=== PATIENT | male | born 1990 | race Two or more races ===

== ENCOUNTER 2016-10-04 07:26 | Emergency (ER) | payer OTHER ==
[~2016-10-04] VITALS: Ht 177.8 cm; Wt 99.0 kg
[~2016-10-04 07:26] MED LIST: FIORIC PO
[2016-10-04 07:31] VITALS: BP 136/86; PULSE 84; RESP 18; TEMP 98.8; O2SAT 97
[2016-10-04] MEDS ORDERED: BACT800T5 PO (07:55)
--- NOTE | 2016-10-04 08:00 | PD ---
HPI Chief Complaint: Skin Problem Time Seen by Provider: 07:46 Travel History International Travel<30 days: No Contact w/Intl Traveler<30days: No Traveled to known affect area: No History of Present Illness HPI This patient complains of some swelling and redness to his right second finger. He noticed it last night. Duration is one day. No injury. No fever no drainage. PFSH Past Medical History Diminished Hearing: No GERD: Yes Immunizations Current: No Migraines: Yes Tetanus Vaccination: Unknown Influenza Vaccination: No Past Surgical History Cholecystectomy: Yes Tonsillectomy: Yes Other Surgery: Yes (SCROTAL HERNIA) Social History Alcohol Use: No Tobacco Use: No (vapor cigs) Substance Use: No Allergies-Medications (Allergen,Severity, Reaction): Coded Allergies: No Known Allergies (Unverified , 10/04/16) Reported Meds & Prescriptions Reported Meds & Active Scripts Active Bactrim DS (Sulfamethoxazole-Trimethoprim) 800-160 Mg Tab 1 Tab PO BID Review of Systems General / Constitutional: No: Fever HENT: No: Headaches Cardiovascular: No: Chest Pain or Discomfort Physical Exam Narrative SKIN: Inspection shows no rash or ulcers. Palpation shows no induration or nodules. Psych: Normal mood and affect. Normal insight and judgment. Right hand: there is some mild swelling of the right second finger distal to the PIP joint. There is no fluctuance or drainage. He can easily flex and extend all the joints of that finger. There is minimal redness. Data Data Last Documented VS Vital Signs Date Time Temp Pulse Resp B/P Pulse Ox O2 Delivery O2 Flow Rate FiO2 10/04/16 07:31 98.8 84 18 136/86 97 MDM Medical Decision Making Medical Screen Exam Complete: Yes Emergency Medical Condition: Yes Medical Record Reviewed: Yes Differential Diagnosis Cellulitis, abscess, tendinitis Narrative Course I have reviewed the patient's electronic medical record. I think he has a mild infection of the distal right second finger. I'm starting Bactrim DS. He will return if he has no improvement in 48 hours No indication for hand surgeon or studies at this time Diagnosis Primary Impression: Finger infection Additional Instructions: The patient was advised to follow up with their physician and return if they worsen. Med/Other Pt SpecificInfo: Prescription(s) given Scripts Sulfamethoxazole-Trimethoprim (Bactrim DS)800-160 Mg Tab1 Tab PO BID #14 TAB Ref 0 Prov:Wei Keyes MD 10/04/16 Disposition: 01 DISCHARGE HOME Condition: Stable Wei Keyes MD Oct 04, 2016 08:00
== END 2016-10-04 08:10 | disposition home or self-care (01) ==
LOC: PHED 07:26
DX: L08.9 Local infection of the skin and subcutaneous tissue, unspecified (principal)
CPT/HCPCS: 99282

== ENCOUNTER 2017-03-09 07:35 | Emergency (ER) | payer SELFPAY ==
[~2017-03-09] VITALS: Ht 177.8 cm; Wt 98.0 kg
[~2017-03-09 07:35] MED LIST changes: +BACT800T5 PO; -FIORIC PO
[2017-03-09 07:38] VITALS: BP 144/97; PULSE 72; RESP 16; TEMP 97.9; O2SAT 98
[2017-03-09] MEDS ORDERED: SODIUM CHLOR 0.9% 1000 ML INJ 1,000 ML IV SCH (07:51)
--- NOTE | 2017-03-09 07:53 | PD ---
HPI Chief Complaint: Abdominal Pain Time Seen by Provider: 07:51 Travel History International Travel<30 days: No Contact w/Intl Traveler<30days: No Traveled to known affect area: No History of Present Illness HPI 26-year-old male with history of cholecystectomy in the past, presents to the ER today with 2 days history of nausea, vomiting, diarrhea, and abdominal cramping pains. Pains are intermittent in nature and can get to a 9 out of 10. He denies any fevers, cough, cold symptoms, or any other symptoms. He does not know any sick contacts, bad food exposure, and denies recent travel. Modifying Factors: None Associated Signs & Symptoms: Nausea, vomiting, diarrhea Risk Factors: None PFSH Past Medical History Diminished Hearing: No GERD: Yes Immunizations Current: No Migraines: Yes Past Surgical History Cholecystectomy: Yes Tonsillectomy: Yes Other Surgery: Yes (SCROTAL HERNIA) Social History Alcohol Use: No Tobacco Use: No (vapor cigs) Substance Use: No Allergies-Medications (Allergen,Severity, Reaction): Coded Allergies: No Known Allergies (Unverified , 03/09/17) Reported Meds & Prescriptions Reported Meds & Active Scripts Active No Active Prescriptions or Reported Medications Review of Systems Except as stated in HPI: all other systems reviewed are Neg Physical Exam Narrative GENERAL: Well-developed young male patient currently in mild distress. Awake and oriented 3. SKIN: Focused skin assessment warm/dry. HEAD: Atraumatic. Normocephalic. EYES: Pupils equal and round. No scleral icterus. No injection or drainage. ENT: No nasal bleeding or discharge. Mucous membranes pink and moist. NECK: Trachea midline. No JVD. CARDIOVASCULAR: Regular rate and rhythm. No murmur appreciated. RESPIRATORY: No accessory muscle use. Clear to auscultation. Breath sounds equal bilaterally. GASTROINTESTINAL: Abdomen soft, diffuse lower abdominal tenderness without guarding or rebound, nondistended. Hepatic and splenic margins not palpable. MUSCULOSKELETAL: No obvious deformities. No clubbing. No cyanosis. No edema. NEUROLOGICAL: Awake and alert. No obvious cranial nerve deficits. Motor grossly within normal limits. Normal speech. PSYCHIATRIC: Appropriate mood and affect; insight and judgment normal. Data Data Last Documented VS Vital Signs Date Time Temp Pulse Resp B/P Pulse Ox O2 Delivery O2 Flow Rate FiO2 03/09/17 11:01 69 16 149/85 99 Room Air 03/09/17 07:38 97.9 Orders Complete Blood Count With Diff (03/09/17 07:51) Comprehensive Metabolic Panel (03/09/17 07:51) Lipase (03/09/17 07:51) Iv Access Insert/Monitor (03/09/17 07:51) Ecg Monitoring (03/09/17 07:51) Oximetry (03/09/17 07:51) Ondansetron Inj (Zofran Inj) (03/09/17 08:00) Sodium Chlor 0.9% 1000 Ml Inj (Ns 1000 M (03/09/17 07:51) Sodium Chloride 0.9% Flush (Ns Flush) (03/09/17 08:00) Dicyclomine Inj (Bentyl Inj) (03/09/17 08:00) Ct Abd/Pel W Iv Contrast(Rout) (03/09/17 08:35) Iohexol 350 Inj (Omnipaque 350 Inj) (03/09/17 10:10) Labs Laboratory Tests Test 03/09/17 08:15 White Blood Count 10.3 TH/MM3 Red Blood Count 5.07 MIL/MM3 Hemoglobin 15.1 GM/DL Hematocrit 45.2 % Mean Corpuscular Volume 89.1 FL Mean Corpuscular Hemoglobin 29.7 PG Mean Corpuscular Hemoglobin 33.3 % Concent Red Cell Distribution Width 12.5 % Platelet Count 148 TH/MM3 Mean Platelet Volume 9.0 FL Neutrophils (%) (Auto) 83.5 % Lymphocytes (%) (Auto) 7.8 % Monocytes (%) (Auto) 5.7 % Eosinophils (%) (Auto) 2.5 % Basophils (%) (Auto) 0.5 % Neutrophils # (Auto) 8.5 TH/MM3 Lymphocytes # (Auto) 0.8 TH/MM3 Monocytes # (Auto) 0.6 TH/MM3 Eosinophils # (Auto) 0.3 TH/MM3 Basophils # (Auto) 0.1 TH/MM3 CBC Comment DIFF FINAL Differential Comment Sodium Level 141 MEQ/L Potassium Level 4.5 MEQ/L Chloride Level 105 MEQ/L Carbon Dioxide Level 30.2 MEQ/L Anion Gap 6 MEQ/L Blood Urea Nitrogen 8 MG/DL Creatinine 0.77 MG/DL Estimat Glomerular Filtration 122 ML/MIN Rate Random Glucose 101 MG/DL Calcium Level 8.4 MG/DL Total Bilirubin 0.4 MG/DL Aspartate Amino Transf 13 U/L (AST/SGOT) Alanine Aminotransferase 30 U/L (ALT/SGPT) Alkaline Phosphatase 60 U/L Total Protein 6.6 GM/DL Albumin 3.6 GM/DL Lipase 123 U/L MDM Medical Decision Making Medical Screen Exam Complete: Yes Emergency Medical Condition: Yes Medical Record Reviewed: Yes Interpretation(s) Laboratory Tests Test 03/09/17 08:15 Platelet Count 148 TH/MM3 (150-450) Neutrophils (%) (Auto) 83.5 % (16.0-70.0) Lymphocytes (%) (Auto) 7.8 % (9.0-44.0) Neutrophils # (Auto) 8.5 TH/MM3 (1.8-7.7) Lymphocytes # (Auto) 0.8 TH/MM3 (1.0-4.8) Calcium Level 8.4 MG/DL (8.5-10.1) Aspartate Amino Transf 13 U/L (15-37) (AST/SGOT) Last 24 hours Impressions Abdomen/Pelvis CT 03/09/17 0835 Signed Impressions: Service Date/Time: Tuesday, March 09, 2017 09:54 - CONCLUSION: 1. Questionable focal wall thickening involving the rectosigmoid colon raising possibility of focal colitis or mass. Colonoscopy may be helpful for further evaluation if clinically indicated. 2. Mild splenomegaly. Amado Mae MD Differential Diagnosis Lower abdominal pain, nausea, vomiting, diarrheagastroenteritis versus gastritis versus dehydration versus metabolic issues Narrative Course Lab work did not show any significant metabolic issues or dehydration. CAT scan is showing focal colitis, most consistent with patient's current symptoms. However the reading has been relayed to the patient for further evaluation follow-up with primary care physician. My plan would be to give him symptomatic relief and have her follow-up with primary care physician. Return for any worsening in symptoms as needed. The plan has been discussed with patient and he states understanding. Diagnosis Primary Impression: Gastroenteritis Med/Other Pt SpecificInfo: Prescription(s) given Scripts Ondansetron Odt (Zofran Odt)4 Mg Tab4 Mg SL Q6HR PRN (Nausea/Vomiting) #7 TAB Ref 0 Prov:Curly Hudson MD 03/09/17 Disposition: 01 DISCHARGE HOME Condition: Stable Soontharothai,Rewadee MD Mar 09, 2017 07:53
[2017-03-09] MEDS ORDERED: ONDANSETRON HCL 4 MG/2 ML VIAL IVP ONE (08:00)
[2017-03-09] MEDS ORDERED: SODIUM CHLORIDE 0.9% FLUSH 10 ML FLUSH IV FLUSH PRN (08:00)
[2017-03-09] MEDS ORDERED: DICYCLOMINE HCL 20 MG/2 ML VIAL IM ONE (08:00)
[2017-03-09 08:05] VITALS: BP 142/77; PULSE 73; RESP 16; O2SAT 98
[2017-03-09 08:33] LABS: AUTOMATED NEUTROPHIL # 8.5 TH/MM3 (1.8-7.7); BASOPHIL # 0.1 TH/MM3 (0-0.2); BASOPHIL % 0.5 % (0.0-2.0); EOSINOPHIL # 0.3 TH/MM3 (0-0.4); EOSINOPHIL % 2.5 % (0.0-4.0); HEMATOCRIT 45.2 % (39.0-51.0); HEMO FLAGS DIFF FINAL; LYMPH % 7.8 % (9.0-44.0); LYMPHOCYTE # 0.8 TH/MM3 (1.0-4.8); MEAN CELL VOLUME 89.1 FL (80.0-100.0); MEAN CORPUSCULAR HEMOGLOBIN 29.7 PG (27.0-34.0); MEAN CORPUSCULAR HGB CONC 33.3 % (32.0-36.0); MONO % 5.7 % (0.0-8.0); NEUT % 83.5 % (16.0-70.0); PLATELET COUNT 148 TH/MM3 (150-450); RED BLOOD COUNT 5.07 MIL/MM3 (4.50-5.90); RED CELL DISTRIBUTION WIDTH 12.5 % (11.6-17.2); WHITE BLOOD COUNT 10.3 TH/MM3 (4.0-11.0)
[2017-03-09 08:58] LABS: CHLORIDE 105 MEQ/L (98-107); POTASSIUM 4.5 MEQ/L (3.5-5.1); SODIUM (NA) 141 MEQ/L (136-145)
[2017-03-09 09:03] VITALS: BP 115/69; PULSE 69; RESP 16; O2SAT 99
[2017-03-09 09:03] LABS: ANION GAP 6 MEQ/L (5-15); BICARBONATE 30.2 MEQ/L (21.0-32.0); BLOOD UREA NITROGEN 8 MG/DL (7-18)
[2017-03-09 09:05] LABS: ALT (GPT) 30 U/L (12-78); AST (GOT) 13 U/L (15-37)
[2017-03-09 09:06] LABS: GLOMERULAR FILTRATION RATE 122 ML/MIN (>89)
[2017-03-09 09:07] LABS: TOTAL BILIRUBIN ADULT 0.4 MG/DL (0.2-1.0)
[2017-03-09 09:08] LABS: ALKALINE PHOSPHATASE 60 U/L (45-117)
[2017-03-09 10:05] VITALS: BP 121/67; PULSE 69; RESP 16; O2SAT 98
[2017-03-09] MEDS ORDERED: IOHEXOL 350 MG/ML 10 ML VIAL (for RAD DIAG) IV ONE (10:10)
--- NOTE | 2017-03-09 10:48 | RADHPO ---
EXAM DATE/TIME: 03/09/2017 09:54 [facility] COMPARISON: No previous studies available for comparison. INDICATIONS : Diffuse abdominal pain. Nausea, vomiting and diarrhea. IV CONTRAST: 85 cc Omnipaque 350 (iohexol) IV ORAL CONTRAST: No oral contrast ingested. RADIATION DOSE: 17.01 CTDIvol (mGy) MEDICAL HISTORY : Gastroesophageal reflux disease. SURGICAL HISTORY : Cholecystectomy. ENCOUNTER: Initial ACUITY: 2 days PAIN SCALE: 9/10 LOCATION: Diffuse abdomen. TECHNIQUE: Volumetric scanning of the abdomen and pelvis was performed. Using automated exposure control and ad justment of the mA and/or kV according to patient size, radiation dose was kept as low as reasonably achievable to obtain optimal diagnostic quality images. FINDINGS: LOWER LUNGS: The visualized lower lungs are clear. LIVER: Homogeneous density without lesion. There is no dilation of the biliary tree. No calcified gallston es. Status post cholecystectomy. SPLEEN: Mild splenomegaly is noted. PANCREAS: Within normal limits. KIDNEYS: Normal in size and shape. There is no mass, stone or hydronephrosis. ADRENAL GLANDS: Within normal limits. VASCULAR: There is no aortic aneurysm. BOWEL/MESENTERY: There is questionable focal wall thickening involving the rectosigmoid colon raising possibility of f ocal colitis or mass. Colonoscopy may be helpful for further evaluation if clinically indicated. ABDOMINAL WALL: Within normal limits. RETROPERITONEUM: There is no lymphadenopathy. BLADDER: No wall thickening or mass. REPRODUCTIVE: Within normal limits. INGUINAL: There is no lymphadenopathy or hernia. MUSCULOSKELETAL: Within normal limits for patient age. CONCLUSION: 1. Questionable focal wall thickening involving the rectosigmoid colon raising possibility of focal c olitis or mass. Colonoscopy may be helpful for further evaluation if clinically indicated. 2. Mild splenomegaly. Amado Mae MD on March 09, 2017 at 10:38 Board Certified Radiologist. This report was verified electronically.
[2017-03-09 11:01] VITALS: BP 149/85; PULSE 69; RESP 16; O2SAT 99
[2017-03-09] MEDS ORDERED: ZOFR4TAB3 SL (11:06)
== END 2017-03-09 11:27 | disposition home or self-care (01) ==
LOC: PHED 07:35
DX: K52.9 Noninfective gastroenteritis and colitis, unspecified (principal); K21.9 Gastro-esophageal reflux disease without esophagitis; F17.200 Nicotine dependence, unspecified, uncomplicated
CPT/HCPCS: 74177; 80053; 83690; 85025; 96361; 96372; 96374; 99285; J0500; J2405; J7030; Q9967

== ENCOUNTER 2017-03-22 01:44 | Emergency (ER) | payer SELFPAY ==
[~2017-03-22] VITALS: Ht 177.8 cm; Wt 96.8 kg
[~2017-03-22 01:44] MED LIST changes: -BACT800T5 PO; +ZOFR4TAB3 SL
[2017-03-22 01:50] VITALS: BP 125/75; PULSE 67; RESP 14; TEMP 97.7; O2SAT 98
[2017-03-22] MEDS ORDERED: KETOROLAC TROMETHAMINE 30 MG/ML (IVP) VIAL IV PUSH ONE (03:00)
[2017-03-22] MEDS ORDERED: METOCLOPRAMIDE HCL 10 MG/2 ML VIAL IV PUSH ONE (03:00)
[2017-03-22] MEDS ORDERED: SODIUM CHLOR 0.9% 1000 ML INJ 1,000 ML IV ONE (03:00)
[2017-03-22] MEDS ORDERED: diphenhydrAMINE HCL 50 MG/ML VIAL IV PUSH ONE (03:00)
[2017-03-22 03:18] VITALS: BP 128/60; PULSE 63; RESP 18; O2SAT 97
--- NOTE | 2017-03-22 04:14 | PD ---
HPI Chief Complaint: Headache Time Seen by Provider: 02:58 Travel History International Travel<30 days: No Contact w/Intl Traveler<30days: No Traveled to known affect area: No History of Present Illness HPI 26 old male presents to the emergency department for complaint of 3 hours of headache onset prior to arrival to the emergency department. Patient states headache is typical of his migraine headaches. Headaches are typically global with associated photophobia and phonophobia. Patient is also had nausea and an episode of vomiting. No neck pain or stiffness. No sudden onset thunderclap or worst ever headache. No recent febrile illness. No sore throat earache sinus pressure drainage. No report of cough or chest pain abdominal pain or diarrhea. No dysuria frequency urgency or flank pain. No report of joint pain or swelling. No report of new upper extremity or lower extremity numbness tingling or weakness. Patient has had headaches for years and has been monitored and on medication prescribed by his primary care provider. Patient has been seen as recently as January 2016 for recurrent headache. At that time underwent imaging which revealed no acute abnormality. Patient does not have family history of headache. No recent injury or fall. No history of seizure disorder. Patient used left over prescription medication for symptom relief without success and presents now for further evaluation. Mother is at bedside. Patient does not have or is not aware of precipitating factor/events. [facility] Past Medical History Narrative Medical Headache migraine GERD inguinal hernia repair tonsillectomy cholecystectomy herniorrhaphy; marijuana use; nursing notes reviewed Diminished Hearing: No GERD: Yes Inguinal Hernia: Yes Immunizations Current: Yes Migraines: Yes Influenza Vaccination: No Past Surgical History Cholecystectomy: Yes Tonsillectomy: Yes Other Surgery: Yes (SCROTAL HERNIA) Social History Alcohol Use: No Tobacco Use: No Substance Use: Yes (occassional marijuana) Allergies-Medications (Allergen,Severity, Reaction): Coded Allergies: No Known Allergies (Unverified , 03/09/17) Reported Meds & Prescriptions Reported Meds & Active Scripts Active No Active Prescriptions or Reported Medications Review of Systems Except as stated in HPI: all other systems reviewed are Neg General / Constitutional: No: Fever, Chills Eyes: Positive: Blurred Vision, Photophobia HENT: Positive: Headaches, No: Vertigo, Lightheadedness, Sore Throat, Congestion, Neck Stiffness, Neck Pain Cardiovascular: No: Chest Pain or Discomfort Respiratory: No: Shortness of Breath Gastrointestinal: Positive: Nausea, Vomiting (x1), No: Diarrhea, Abdominal Pain Genitourinary: No: Urgency, Frequency, Dysuria, Hematuria, Flank Pain Musculoskeletal: No: Myalgias, Arthralgias, Pain Skin: No Rash Neurologic: Positive: Headache, No: Weakness, Dizziness, Syncope, Focal Abnormalities, Coordination Problem, Change in Mentation, Slurred Speech, Paresthesia, Sensory Disturbance Psychiatric: No: Anxiety Endocrine: No: Heat Intolerance Hematologic/Lymphatic: No: Easy Bruising Physical Exam Narrative GENERAL: Well-developed well-nourished male in no acute distress no respiratory distress; GCS 15 SKIN: Warm and dry. HEAD: Atraumatic. Normocephalic. EYES: Pupils equal and round. No scleral icterus. No injection or drainage. Extraocular muscles intact. Funduscopic exam no papilledema. ENT: No nasal bleeding or discharge. Mucous membranes pink and moist. NECK: Trachea midline. No JVD. No meningismus no nuchal rigidity, supple. CARDIOVASCULAR: Regular rate and rhythm. RESPIRATORY: No accessory muscle use. Clear to auscultation. Breath sounds equal bilaterally. GASTROINTESTINAL: Abdomen soft, non-tender, nondistended. Hepatic and splenic margins not palpable. MUSCULOSKELETAL: Extremities without clubbing, cyanosis, or edema. No obvious deformities. NEUROLOGICAL: Awake and alert. No obvious cranial nerve deficits. Motor grossly within normal limits. Five out of 5 muscle strength in the arms and legs. Sensory exam grossly intact; DTRs 2+ and symmetric bilateral upper extremities lower extremities. Normal speech. PSYCHIATRIC: Appropriate mood and affect; insight and judgment normal. Data Data Last Documented VS Vital Signs Date Time Temp Pulse Resp B/P Pulse Ox O2 Delivery O2 Flow Rate FiO2 03/22/17 03:18 63 18 128/60 97 Room Air 03/22/17 01:50 97.7 Orders Ketorolac Inj (Toradol Inj) (03/22/17 03:00) Sodium Chlor 0.9% 1000 Ml Inj (Ns 1000 M (03/22/17 03:00) Metoclopramide Inj (Reglan Inj) (03/22/17 03:00) Diphenhydramine Inj (Benadryl Inj) (03/22/17 03:00) MDM Medical Decision Making Medical Screen Exam Complete: Yes Emergency Medical Condition: Yes Medical Record Reviewed: Yes Differential Diagnosis Recurrent headachemigraine versus tension versus cluster versus vascular versus infectious; dehydration; no findings to support meningismus or meningitis unlikely ICH not thunderclap not sudden onset not worst ever similar to previous headaches. Narrative Course Patient placed on monitor administered 1 L normal saline bolus, Reglan 10 mg IV , Benadryl 25 mg IV, Toradol 30 mg IV IV fluids infusing patient resting comfortably; headache is not thunderclap, sudden onset, worst ever or associated with fever, chills, cough, congestion, sinus pressure, sinus drainage, respiratory illness, or neck stiffness. No indication for imaging at this time; will defer lab work at this time as no clear indication to collect specimens for study. Patient appears to be sleeping mother at bedside @ 405 AM GAFFNEY 01/03 in intensity; this is improved from 06/05. At 4:30 AM patient states that he feels markedly improved is desirous of being discharged to home states he must be ready for work by 8 AM. At this point time patient is stable for outpatient management tolerating oral hydration well no nausea or vomiting. Patient encouraged to follow-up with his primary care provider return to the emergency department as needed. Mother is at bedside. Diagnosis Primary Impression: Migraine headache Qualified Code: G43.009 - Migraine without aura and without status migrainosus , not intractable Referrals: Primary Care Physician call for appointment Patient Instructions: General Instructions Departure Forms: Tests/Procedures, Work Release Special Instructions: no work x 1 day Additional Instructions: Increase fluid hydration Follow-up with your primary care provider Return to the emergency department for any concerns or change in condition No work times one day Take acetaminophen/Tylenol as needed for fever 100.4F or greater May take ibuprofen/Advil/Motrin 800 mg as often as every 8 hours as needed for pain associated with inflammation or for fever 100.4F or greater Scripts No Active Prescriptions or Reported Meds Disposition: 01 DISCHARGE HOME Condition: Stable Emmanuelle Paredes MD Mar 22, 2017 04:14
[2017-03-22 04:29] VITALS: BP 137/64; PULSE 69; RESP 18; TEMP 97.8; O2SAT 96
== END 2017-03-22 04:38 | disposition home or self-care (01) ==
LOC: PHED 01:44
DX: G43.009 Migraine without aura, not intractable, without status migrainosus (principal); K21.9 Gastro-esophageal reflux disease without esophagitis
CPT/HCPCS: 96361; 96374; 96375; 99284; J1200; J1885; J2765; J7030

== ENCOUNTER 2017-05-29 00:20 | Emergency (ER) | payer SELFPAY ==
[~2017-05-29] VITALS: Ht 172.7 cm; Wt 98.0 kg
[2017-05-29 00:25] VITALS: BP 159/94; PULSE 62; RESP 20; TEMP 98.2; O2SAT 98
[2017-05-29] MEDS ORDERED: SODIUM CHLOR 0.9% 1000 ML INJ 1,000 ML IV ONE (01:25)
--- NOTE | 2017-05-29 01:25 | PD ---
HPI Chief Complaint: ENT Complaint Time Seen by Provider: 01:18 Travel History International Travel<30 days: No Contact w/Intl Traveler<30days: No Traveled to known affect area: No History of Present Illness HPI The patient is a 26-year-old male that complains of pain around the left frontal sinus since he blew his nose around 10 PM tonight. He complains of a severe pain of 10 over 10. He has been seen several times here for migraine headaches before. He does not have any primary care physician or insurance. He is a nonsmoker. He demands something for pain and is somewhat angry about having to wait. He tried a nasal spray at home but without relief. She does not know what nasal spray he tried. He has had sinus problems for years. [facility] Past Medical History Diminished Hearing: No GERD: Yes Inguinal Hernia: Yes Immunizations Current: Yes Migraines: Yes Past Surgical History Cholecystectomy: Yes Tonsillectomy: Yes Other Surgery: Yes (SCROTAL HERNIA) Social History Alcohol Use: No Tobacco Use: No Substance Use: Yes (occassional marijuana) Allergies-Medications (Allergen,Severity, Reaction): Coded Allergies: No Known Allergies (Unverified , 05/29/17) Reported Meds & Prescriptions Reported Meds & Active Scripts Active No Active Prescriptions or Reported Medications Review of Systems Except as stated in HPI: all other systems reviewed are Neg Physical Exam Narrative GENERAL: Well-nourished, well-developed patient in moderate apparent distress with his headache pain. His vital signs show blood pressure 159/94 but otherwise normal. SKIN: Focused skin assessment warm/dry. HEAD: Normocephalic. EYES: No scleral icterus. No injection or drainage. NECK: Supple, trachea midline. No JVD or lymphadenopathy. CARDIOVASCULAR: Regular rate and rhythm without murmurs, gallops, or rubs. RESPIRATORY: Breath sounds equal bilaterally. No accessory muscle use. GASTROINTESTINAL: Abdomen soft, non-tender, nondistended. MUSCULOSKELETAL: No cyanosis, or edema. BACK: Nontender without obvious deformity. No CVA tenderness. ENT: There is slight tenderness over the left frontal sinus, no other sinus tenderness is present. Data Data Last Documented VS Vital Signs Date Time Temp Pulse Resp B/P (MAP) Pulse Ox O2 Delivery O2 Flow Rate FiO2 05/29/17 00:25 98.2 62 20 159/94 (115) 98 Orders Orders Oxymetazoline 0.05% Victor Manuel [place] (Afrin 0.0 (05/29/17 01:30) Ct Sinuses W/O Iv Contrast (05/29/17 ) Ketorolac Inj (Toradol Inj) (05/29/17 01:30) Prochlorperazine Inj (Compazine Inj) (05/29/17 01:30) Hydromorphone Pf Inj (Dilaudid Pf Inj) (05/29/17 01:30) Sodium Chlor 0.9% 1000 Ml Inj (Ns 1000 M (05/29/17 01:25) MDM Medical Decision Making Medical Screen Exam Complete: Yes Emergency Medical Condition: Yes Medical Record Reviewed: Yes Interpretation(s) The CT of the sinuses shows mucosal thickening in the ethmoid air cells and maxillary sinuses. Also retention cyst in the floor of the left maxillary sinus measuring about 2 cm. Left frontal and sphenoid sinus also demonstrate mucosal thickening. The mastoid air cells are clear. No air-fluid levels are noted. Differential Diagnosis Sinusitis, air fluid level in sinuses, sinus pressure syndrome Narrative Course It is now 0245 and the patient feels comfortable. He will need to follow-up with an dumper bailer operator for this chronic sinusitis. We will put him on Augmentin and Afrin. He has an elevated blood pressure and I am reluctant to give him systemic decongestants cousin of this. Diagnosis Primary Impression: Chronic pansinusitis Additional Instructions: When the pressure gets bad you can try the Afrin, 2 sprays by about 5 minutes. It is necessary to follow-up with an dumper bailer operator. The antibiotic is one tablet twice daily for 10 days. Do not drink alcohol or drive on the Lortab 5. Med/Other Pt SpecificInfo: Prescription(s) given Scripts Hydrocodone-Acetaminophen (Lortab) 5-325 Mg Tab 1 TAB PO Q6H Y for PAIN, #28 TAB 0 Refills Prov: Naif Javed MD 05/29/17 Amoxicillin-Clavulanate (Augmentin) 875-125 Mg Tab 1 TAB PO BID for Infection for 10 Days, TAB 0 Refills Prov: Naif Javed MD 05/29/17 Disposition: 01 DISCHARGE HOME Condition: Stable Naif Javed MD May 29, 2017 01:25
[2017-05-29] MEDS ORDERED: KETOROLAC TROMETHAMINE 30 MG/ML (IVP) VIAL IVP ONE (01:30)
[2017-05-29] MEDS ORDERED: HYDROmorphone HCL PF 1 MG/ML VIAL IVS ONE (01:30)
[2017-05-29] MEDS ORDERED: OXYMETAZOLINE HCL 0.05% 15 ML NASAL SPRAY NASAL ONE (01:30)
[2017-05-29] MEDS ORDERED: PROCHLORPERAZINE INJ 10 MG/2 ML VIAL IVP ONE (01:30)
--- NOTE | 2017-05-29 02:16 | RADRPT ---
EXAM DATE/TIME: 05/29/2017 01:33 [facility] COMPARISON: No previous studies available for comparison. INDICATIONS : Left sided facial pain for 5 hours RADIATION DOSE: 25.29 CTDIvol (mGy) MEDICAL HISTORY : None SURGICAL HISTORY : None. ENCOUNTER: Initial ACUITY: 1 day PAIN SCORE: 9/10 LOCATION: Left facial TECHNIQUE: Volumetric scanning of the paranasal sinuses was performed. Using automated exposure control and adj ustment of the mA and/or kV according to patient size, radiation dose was kept as low as reasonably a chievable to obtain optimal diagnostic quality images. DICOM format image data is available electro nically for review and comparison. FINDINGS: There is mucosal thickening in the ethmoid air cells and maxillary sinuses. Also retention cysts in t he floor left maxillary sinus measuring about 2 cm. Left frontal sinus and sphenoid sinus also demons trate mucosal thickening. No bony destructive changes. Mastoid air cells are clear. CONCLUSION: 1. Pansinus mucosal thickening. No air-fluid levels. Juan Alfredo MD on May 29, 2017 at 2:10 Board Certified Radiologist. This report was verified electronically.
[2017-05-29] MEDS ORDERED: HYDR-3533 PO (02:47)
[2017-05-29] MEDS ORDERED: AUGM875T3 PO (02:47)
[2017-05-29 02:59] VITALS: BP 154/76
== END 2017-05-29 03:04 | disposition home or self-care (01) ==
LOC: PHED 00:20
DX: J32.4 Chronic pansinusitis (principal)
CPT/HCPCS: 70486; 96361; 96374; 96375; 99285; J0780; J1170; J1885; J7030

== ENCOUNTER 2017-09-06 03:07 | Emergency (ER) | payer SELFPAY ==
[~2017-09-06] VITALS: Ht 172.7 cm; Wt 108.2 kg
[~2017-09-06 03:07] MED LIST changes: +AUGM875T3 PO; +HYDR-3533 PO; -ZOFR4TAB3 SL
[2017-09-06 03:14] VITALS: BP 144/86; PULSE 70; RESP 12; TEMP 97.5; O2SAT 98
[2017-09-06 03:26] VITALS: BP 144/96; PULSE 70; RESP 16; TEMP 97.5; O2SAT 98
[2017-09-06] MEDS ORDERED: SODIUM CHLOR 0.9% 1000 ML INJ 1,000 ML IV SCH (03:28)
[2017-09-06] MEDS ORDERED: ONDANSETRON HCL 4 MG/2 ML VIAL IVP ONE (03:30)
[2017-09-06] MEDS ORDERED: KETOROLAC TROMETHAMINE 30 MG/ML (IVP) VIAL IVP ONE (03:30)
[2017-09-06] MEDS ORDERED: SODIUM CHLORIDE 0.9% FLUSH 10 ML FLUSH IV FLUSH PRN (03:30)
[2017-09-06] MEDS ORDERED: MORPHINE SULFATE 4 MG/ML INJ IV PUSH ONE (03:30)
[2017-09-06 03:57] VITALS: PULSE 71; RESP 18; O2SAT 97
[2017-09-06 03:59] LABS: AUTOMATED NEUTROPHIL # 5.8 TH/MM3 (1.8-7.7); BASOPHIL # 0.1 TH/MM3 (0-0.2); BASOPHIL % 0.8 % (0.0-2.0); EOSINOPHIL # 0.1 TH/MM3 (0-0.4); EOSINOPHIL % 1.6 % (0.0-4.0); HEMATOCRIT 48.5 % (39.0-51.0); HEMO FLAGS DIFF FINAL; LYMPH % 24.1 % (9.0-44.0); LYMPHOCYTE # 2.1 TH/MM3 (1.0-4.8); MEAN CELL VOLUME 87.7 FL (80.0-100.0); MEAN CORPUSCULAR HEMOGLOBIN 28.6 PG (27.0-34.0); MEAN CORPUSCULAR HGB CONC 32.6 % (32.0-36.0); MONO % 6.4 % (0.0-8.0); NEUT % 67.1 % (16.0-70.0); PLATELET COUNT 174 TH/MM3 (150-450); RED BLOOD COUNT 5.53 MIL/MM3 (4.50-5.90); RED CELL DISTRIBUTION WIDTH 12.5 % (11.6-17.2); WHITE BLOOD COUNT 8.7 TH/MM3 (4.0-11.0)
[2017-09-06 04:00] VITALS: BP 170/91; PULSE 71; RESP 18; O2SAT 96
[2017-09-06 04:09] LABS: CHLORIDE 103 MEQ/L (98-107); POTASSIUM 3.7 MEQ/L (3.5-5.1); SODIUM (NA) 138 MEQ/L (136-145)
[2017-09-06 04:13] LABS: ANION GAP 9 MEQ/L (5-15); BICARBONATE 25.8 MEQ/L (21.0-32.0); BLOOD UREA NITROGEN 12 MG/DL (7-18)
[2017-09-06 04:16] LABS: ALT (GPT) 46 U/L (12-78); AST (GOT) 43 U/L (15-37); GLOMERULAR FILTRATION RATE 117 ML/MIN (>89)
[2017-09-06 04:17] LABS: TOTAL BILIRUBIN ADULT 0.6 MG/DL (0.2-1.0)
[2017-09-06 04:19] LABS: ALKALINE PHOSPHATASE 82 U/L (45-117)
--- NOTE | 2017-09-06 04:21 | RADRPT ---
EXAM DATE/TIME: 09/06/2017 03:52 [place] COMPARISON: CT ABDOMEN & PELVIS W CONTRAST, March 09, 2017, 9:54. INDICATIONS : Back pain without trauma. ORAL CONTRAST: No oral contrast ingested. RADIATION DOSE: 21.00 CTDIvol (mGy) MEDICAL HISTORY : Gastroesophageal reflux disease. Hernia, inguinal. SURGICAL HISTORY : Cholecystectomy. ENCOUNTER: Initial ACUITY: 1 day PAIN SCALE: 9/10 LOCATION: Bilateral flank back TECHNIQUE: Volumetric scanning of the abdomen and pelvis was performed. Using automated exposure control and ad justment of the mA and/or kV according to patient size, radiation dose was kept as low as reasonably achievable to obtain optimal diagnostic quality images. DICOM format image data is available electro nically for review and comparison. FINDINGS: LOWER LUNGS: The visualized lower lungs are clear. LIVER: Homogeneous density without lesion for noncontrast technique. There is no dilation of the biliary tr ee. Cholecystectomy. SPLEEN: Measures 15 cm, similar to prior CT in February 2017. No focal lesions for noncontrast technique.. PANCREAS: Within normal limits. KIDNEYS: Normal in size and shape. There is no mass, stone, or hydronephrosis. Normal dimensions of both ure ters. ADRENAL GLANDS: Within normal limits. VASCULAR: There is no aortic aneurysm. BOWEL/MESENTERY: No dilated loops of small or large bowel. No evidence of free fluid. ABDOMINAL WALL: Within normal limits. RETROPERITONEUM: There is no lymphadenopathy. BLADDER: No wall thickening or mass. REPRODUCTIVE: Within normal limits. INGUINAL: There is no lymphadenopathy or hernia. MUSCULOSKELETAL: Within normal limits for patient age. CONCLUSION: No acute finding zones noncontrast CT abdomen/pelvis. Stable splenomegaly. No evidence of renal sto emelina or hydronephrosis. Lorenzo Muñoz MD on September 06, 2017 at 4:16 Board Certified Radiologist. This report was verified electronically.
--- NOTE | 2017-09-06 04:31 | PD ---
HPI Chief Complaint: Musculoskeletal Complaint Time Seen by Provider: 03:21 Travel History International Travel<30 days: No Contact w/Intl Traveler<30days: No Traveled to known affect area: No History of Present Illness HPI Patient is a 26-year-old male comes in complaining of back pain. He says the pain started tonight and is in the center of his back. He does not recall any injury to his back. He says he does have some pain in his abdomen and feels nauseous. He denies any vomiting. He denies any urinary symptoms. He denies fever or chills. 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 He has been standing on his feet all night. He did not take anything for his pain at home. [facility] Past Medical History Diminished Hearing: No Gastrointestinal Disorders: Yes (IBS) GERD: Yes Inguinal Hernia: Yes Immunizations Current: Yes Migraines: Yes Ulcer: Yes Influenza Vaccination: No ?: Not Past Surgical History Cholecystectomy: Yes Tonsillectomy: Yes Other Surgery: Yes (SCROTAL HERNIA) Social History Alcohol Use: No Tobacco Use: No Substance Use: Yes (occassional marijuana) Allergies-Medications (Allergen,Severity, Reaction): Coded Allergies: No Known Allergies (Unverified Adverse Reaction, Unknown, 09/06/17) Reported Meds & Prescriptions Reported Meds & Active Scripts Active Review of Systems Except as stated in HPI: all other systems reviewed are Neg General / Constitutional: No: Fever, Chills HENT: No: Headaches, Lightheadedness Cardiovascular: No: Chest Pain or Discomfort Respiratory: No: Shortness of Breath Gastrointestinal: Positive: Nausea, No: Vomiting Genitourinary: No: Dysuria, Hematuria Musculoskeletal: Positive: Pain, No: Edema Skin: No Rash, No Change in Pigmentation Neurologic: No: Weakness, Dizziness Physical Exam Narrative GENERAL: Awake and alert, in no acute distress. SKIN: Focused skin assessment warm/dry. HEAD: Atraumatic. Normocephalic. EYES: Pupils equal and round. No scleral icterus. ENT: Mucous membranes pink and moist. NECK: Trachea midline. No JVD. CARDIOVASCULAR: Regular rate and rhythm. No murmur appreciated. RESPIRATORY: No accessory muscle use. Clear to auscultation. Breath sounds equal bilaterally. GASTROINTESTINAL: Abdomen soft, non-tender, nondistended. Bilateral CVA tenderness. MUSCULOSKELETAL: No obvious deformities. No clubbing. No cyanosis. No edema. No spinal tenderness. NEUROLOGICAL: Awake and alert. No obvious cranial nerve deficits. Motor grossly within normal limits. Normal speech. PSYCHIATRIC: Appropriate mood and affect; insight and judgment normal. Data Data Last Documented VS Vital Signs Date Time Temp Pulse Resp B/P (MAP) Pulse Ox O2 Delivery O2 Flow Rate FiO2 09/06/17 03:57 71 18 97 Room Air 09/06/17 03:26 97.5 Orders Orders Complete Blood Count With Diff (09/06/17 03:28) Comprehensive Metabolic Panel (09/06/17 03:28) Urinalysis - C+S If Indicated (09/06/17 03:28) Ct Abd/Pel W/O Iv Contrast (09/06/17 03:28) Iv Access Insert/Monitor (09/06/17 03:28) Ecg Monitoring (09/06/17 03:28) Oximetry (09/06/17 03:28) Morphine Inj (Morphine Inj) (09/06/17 03:30) Ondansetron Inj (Zofran Inj) (09/06/17 03:30) Sodium Chlor 0.9% 1000 Ml Inj (Ns 1000 M (09/06/17 03:28) Sodium Chloride 0.9% Flush (Ns Flush) (09/06/17 03:30) Ketorolac Inj (Toradol Inj) (09/06/17 03:30) Labs Laboratory Tests Test 09/06/17 03:40 White Blood Count 8.7 TH/MM3 Red Blood Count 5.53 MIL/MM3 Hemoglobin 15.8 GM/DL Hematocrit 48.5 % Mean Corpuscular Volume 87.7 FL Mean Corpuscular Hemoglobin 28.6 PG Mean Corpuscular Hemoglobin Concent 32.6 % Red Cell Distribution Width 12.5 % Platelet Count 174 TH/MM3 Mean Platelet Volume 8.9 FL Neutrophils (%) (Auto) 67.1 % Lymphocytes (%) (Auto) 24.1 % Monocytes (%) (Auto) 6.4 % Eosinophils (%) (Auto) 1.6 % Basophils (%) (Auto) 0.8 % Neutrophils # (Auto) 5.8 TH/MM3 Lymphocytes # (Auto) 2.1 TH/MM3 Monocytes # (Auto) 0.6 TH/MM3 Eosinophils # (Auto) 0.1 TH/MM3 Basophils # (Auto) 0.1 TH/MM3 CBC Comment DIFF FINAL Differential Comment Blood Urea Nitrogen 12 MG/DL Creatinine 0.80 MG/DL Random Glucose 102 MG/DL Total Protein 7.5 GM/DL Albumin 4.1 GM/DL Calcium Level 8.5 MG/DL Alkaline Phosphatase 82 U/L Aspartate Amino Transf (AST/SGOT) 43 U/L Alanine Aminotransferase (ALT/SGPT) 46 U/L Total Bilirubin 0.6 MG/DL Sodium Level 138 MEQ/L Potassium Level 3.7 MEQ/L Chloride Level 103 MEQ/L Carbon Dioxide Level 25.8 MEQ/L Anion Gap 9 MEQ/L Estimat Glomerular Filtration Rate 117 ML/MIN [facility] Medical Decision Making Medical Screen Exam Complete: Yes Emergency Medical Condition: Yes Medical Record Reviewed: Yes Differential Diagnosis Renal stone versus UTI versus dehydration versus muscle strain Narrative Course Patient is a 26-year-old male comes in complaining of back pain. Exam shows bilateral CVA tenderness. IV established, labs sent. Labs show no acute abnormalities. CT abdomen and pelvis performed shows no evidence of renal stone , no acute abnormalities. Patient given IV fluids, Zofran, Toradol, morphine. He reports feeling better. Pain is likely musculoskeletal. He is advised to take ibuprofen as needed for pain. Given a prescription for Flexeril to take as needed as well. Advised follow-up with a primary doctor. Advised to return to the ED as needed for any worsening symptoms. Diagnosis Primary Impression: Back pain Qualified Codes: M54.5 - Low back pain Patient Instructions: Back Pain (ED), General Instructions Additional Instructions: Take ibuprofen as needed for pain. He can take a muscle relaxer for muscle spasms. Follow-up care doctor. Return to the ED as needed for any worsening symptoms. Scripts Cyclobenzaprine (Flexeril) 10 Mg Tab 10 MG PO TID for Muscle Spasm, #10 TAB 0 Refills Prov: Nay Brice MD 09/06/17 Disposition: 01 DISCHARGE HOME Condition: Stable Nay Brice MD Sep 06, 2017 04:31
[2017-09-06] MEDS ORDERED: CYCL10TA PO (04:37)
[2017-09-06 05:00] LABS: BLOOD, URINE TRACE (NEG); GLUCOSE,URINE NEG (NEG); KETONE, URINE 15 mg/dL (NEG); NITRITE,URINE NEG (NEG)
[2017-09-06 05:04] VITALS: BP 154/87; PULSE 71; RESP 18; O2SAT 100
[2017-09-06 05:09] LABS: URINE COLOR YELLOW (YELLW/STRAW)
[2017-09-06 05:10] LABS: MUCUS URINE MOD /lpf (OCC); WBC, URINE 0-2 /hpf (0-5)
[2017-09-06 05:11] LABS: RBC, URINE 0-3 /hpf (0-3); SQUAMOUS EPITHELIAL CELL URINE 0-5 /hpf (0-5)
[2017-09-06 05:12] LABS: COMMENT (UR) CULT NOT INDICATED; CULTURE IF INDICATED CULT NOT INDICATED
[2017-09-06 05:16] VITALS: BP 140/73
== END 2017-09-06 05:23 | disposition home or self-care (01) ==
LOC: PHED 03:07
DX: M54.5 Low back pain (principal); R10.9 Unspecified abdominal pain
CPT/HCPCS: 74176; 80053; 81001; 85025; 96361; 96374; 96375; 99285; J1885; J2270; J2405; J7030